=== PATIENT | male | born 1930 | race Caucasian/White ===

== ENCOUNTER 2019-04-22 14:45 | Inpatient (IN) | payer MEDICARE ==
[2019-04-22] MEDS ORDERED: SODIUM CHLORIDE 0.9% 1,000 ML IV STA (14:54)
--- NOTE | 2019-04-22 15:10 | ED ---
General Adult HPI - General Chief complaint: Altered Mental Status Stated complaint: Altered Mental Status Time Seen by Provider: 04/22/19 14:48 Source: patient, EMS, RN notes reviewed Mode of arrival: EMS Limitations: altered mental status - History of Present Illness Initial comments: Patient is a pleasant 88-year-old male presenting to the emergency Department with reported change in mental status. Patient had an episode today and yesterday. Patient states episode was fairly mild and he doesn't really know much about it. Patient states his family member was concerned about him and recommended she come to the emergency department. Patient symptom-free at this time and has no complaints. - Related Data Home Medications Medication Instructions Recorded Confirmed Pantoprazole Sodium [Protonix] 40 mg PO DAILY 04/22/19 04/22/19 Allergies Allergy/AdvReac Type Severity Reaction Status Date / Time No Known Allergies Allergy Verified 04/22/19 15:34 Review of Systems ROS Statement: Those systems with pertinent positive or pertinent negative responses have been documented in the HPI. ROS Other: All systems not noted in ROS Statement are negative. Constitutional: Denies: fever Eyes: Denies: eye pain ENT: Denies: ear pain Respiratory: Denies: dyspnea Cardiovascular: Denies: chest pain Endocrine: Denies: fatigue Gastrointestinal: Denies: abdominal pain Genitourinary: Denies: dysuria Musculoskeletal: Denies: back pain Skin: Denies: rash Neurological: Denies: weakness Past Medical History Additional Past Medical History / Comment(s): heart murmur History of Any Multi-Drug Resistant Organisms: None Reported Past Surgical History: Unable to Obtain Past Psychological History: No Psychological Hx Reported Smoking Status: Never smoker Past Alcohol Use History: None Reported Past Drug Use History: None Reported General Exam Limitations: altered mental status General appearance: alert, in no apparent distress Head exam: Present: normocephalic, other (Mild abrasion) Eye exam: Present: normal appearance, PERRL ENT exam: Present: normal oropharynx Neck exam: Present: normal inspection Respiratory exam: Present: normal lung sounds bilaterally Cardiovascular Exam: Present: regular rate, normal rhythm GI/Abdominal exam: Present: soft. Absent: tenderness Neurological exam: Present: alert, oriented X3, CN II-XII intact. Absent: motor sensory deficit Expanded Neurological exam: Present: protecting the airway Patient oriented to: Present: person, place, time Speech: Present: fluid speech Cranial nerves: EOM's Intact: Normal Motor strength exam: RUE: 5, LUE: 5, RLE: 5, LLE: 5 Eye Response: (4) open spontaneously Motor Response: (6) obeys commands Verbal Response: (5) oriented Psychiatric exam: Present: normal affect, normal mood Skin exam: Present: normal color, abrasion (Right forehead, mild and right arm and hand) Course Vital Signs 04/22/19 14:55 Temperature 98.9 F Pulse Rate 65 Respiratory 17 Rate Blood Pressure 122/63 O2 Sat by Pulse 98 Oximetry EKG Findings - EKG Comments: EKG Findings:: Sinus rhythm at 65. For screening AV block NE of 256. QRS 118. QT 48. QTC 507. Left axis. Left anterior fascicular block. Incomplete right bundle-branch block. No acute ST change. Medical Decision Making - Medical Decision Making Patient reevaluated and resting comfortably in bed. Still no complaints of chest discomfort. Family is now present and offers additional history. She states patient did appear near syncopal and somewhat confused when she went to evaluate him earlier today. - Lab Data Result diagrams: 04/22/19 14:55 04/22/19 14:55 Lab Results 04/22/19 04/22/19 04/22/19 Range/Units 14:55 14:55 14:55 WBC 10.0 (3.8-10.6) k/uL RBC 4.26 L (4.30-5.90) m/uL Hgb 13.9 (13.0-17.5) gm/dL Hct 41.4 (39.0-53.0) % MCV 97.1 (80.0-100.0) fL MCH 32.6 (25.0-35.0) pg MCHC 33.6 (31.0-37.0) g/dL RDW 13.3 (11.5-15.5) % Plt Count 209 (150-450) k/uL Neutrophils % 76 % Lymphocytes % 14 % Monocytes % 7 % Eosinophils % 0 % Basophils % 0 % Neutrophils # 7.6 (1.3-7.7) k/uL Lymphocytes # 1.4 (1.0-4.8) k/uL Monocytes # 0.7 (0-1.0) k/uL Eosinophils # 0.0 (0-0.7) k/uL Basophils # 0.0 (0-0.2) k/uL PT 9.9 (9.0-12.0) sec INR 0.9 (<1.2) APTT 21.8 L (22.0-30.0) sec Sodium 135 L (137-145) mmol/L Potassium 4.9 (3.5-5.1) mmol/L Chloride 104 (98-107) mmol/L Carbon Dioxide 21 L (22-30) mmol/L Anion Gap 10 mmol/L BUN 14 (9-20) mg/dL Creatinine 1.22 (0.66-1.25) mg/dL Est GFR (CKD-EPI)AfAm 62 (>60 ml/min/1.73 sqM) Est GFR (CKD-EPI)NonAf 53 (>60 ml/min/1.73 sqM) Glucose 92 (74-99) mg/dL Calcium 8.8 (8.4-10.2) mg/dL Total Bilirubin 1.2 (0.2-1.3) mg/dL AST 54 (17-59) U/L ALT 17 (4-49) U/L Alkaline Phosphatase 64 (38-126) U/L Troponin I (0.000-0.034) ng/mL Total Protein 6.8 (6.3-8.2) g/dL Albumin 3.7 (3.5-5.0) g/dL Urine Color Urine Appearance (Clear) Urine pH (5.0-8.0) Ur Specific [place] (1.001-1.035) Urine Protein (Negative) Urine Glucose (UA) (Negative) Urine Ketones (Negative) Urine Blood (Negative) Urine Nitrite (Negative) Urine Bilirubin (Negative) Urine Urobilinogen (<2.0) mg/dL Ur Leukocyte Esterase (Negative) Urine RBC (0-5) /hpf Urine WBC (0-5) /hpf Ur Squamous Epith Cells (0-4) /hpf Hyaline Casts (0-2) /lpf Urine Mucus (None) /hpf 04/22/19 04/22/19 Range/Units 14:55 14:55 WBC (3.8-10.6) k/uL RBC (4.30-5.90) m/uL Hgb (13.0-17.5) gm/dL Hct (39.0-53.0) % MCV (80.0-100.0) fL MCH (25.0-35.0) pg MCHC (31.0-37.0) g/dL RDW (11.5-15.5) % Plt Count (150-450) k/uL Neutrophils % % Lymphocytes % % Monocytes % % Eosinophils % % Basophils % % Neutrophils # (1.3-7.7) k/uL Lymphocytes # (1.0-4.8) k/uL Monocytes # (0-1.0) k/uL Eosinophils # (0-0.7) k/uL Basophils # (0-0.2) k/uL PT (9.0-12.0) sec INR (<1.2) APTT (22.0-30.0) sec Sodium (137-145) mmol/L Potassium (3.5-5.1) mmol/L Chloride (98-107) mmol/L Carbon Dioxide (22-30) mmol/L Anion Gap mmol/L BUN (9-20) mg/dL Creatinine (0.66-1.25) mg/dL Est GFR (CKD-EPI)AfAm (>60 ml/min/1.73 sqM) Est GFR (CKD-EPI)NonAf (>60 ml/min/1.73 sqM) Glucose (74-99) mg/dL Calcium (8.4-10.2) mg/dL Total Bilirubin (0.2-1.3) mg/dL AST (17-59) U/L ALT (4-49) U/L Alkaline Phosphatase (38-126) U/L Troponin I 0.404 H* (0.000-0.034) ng/mL Total Protein (6.3-8.2) g/dL Albumin (3.5-5.0) g/dL Urine Color Yellow Urine Appearance Cloudy (Clear) Urine pH 6.0 (5.0-8.0) Ur Specific [place] 1.024 (1.001-1.035) Urine Protein 1+ H (Negative) Urine Glucose (UA) Negative (Negative) Urine Ketones Negative (Negative) Urine Blood Negative (Negative) Urine Nitrite Negative (Negative) Urine Bilirubin Negative (Negative) Urine Urobilinogen 2.0 (<2.0) mg/dL Ur Leukocyte Esterase Negative (Negative) Urine RBC 1 (0-5) /hpf Urine WBC 2 (0-5) /hpf Ur Squamous Epith Cells <1 (0-4) /hpf Hyaline Casts 29 H (0-2) /lpf Urine Mucus Many H (None) /hpf - Radiology Data Radiology results: report reviewed (Computed tomography scan of the brain shows no acute hemorrhage. Atrophy. Old lacunar injuries. Arachnoid cyst.), image reviewed (Chest x-ray shows no acute process. Questionable aneurysm) Disposition Clinical Impression: Near syncope Disposition: ADMITTED IP TO THIS HOSP Is patient prescribed a controlled substance at d/c from ED?: No Referrals: Jesu Sams DO [Primary Care Provider] - 1-2 days Decision Time: 16:01
[2019-04-22 15:18] LABS: Basophils % (A) 0 %; Eosinophils % (A) 0 %; HCT 41.4 % (39.0-53.0); HGB 13.9 gm/dL (13.0-17.5); Lymphocytes # (A) 1.4 k/uL (1.0-4.8); Lymphocytes % (A) 14 %; MCH 32.6 pg (25.0-35.0); MCHC 33.6 g/dL (31.0-37.0); MCV 97.1 fL (80.0-100.0); Mean Platelet Volume 8.6; Monocytes # (A) 0.7 k/uL (0-1.0); Monocytes % (A) 7 %; Neutrophils # (A) 7.6 k/uL (1.3-7.7); Neutrophils % (A) 76 %; Platelet Count 209 k/uL (150-450); RBC 4.26 m/uL (4.30-5.90); RDW 13.3 % (11.5-15.5)
[2019-04-22 15:22] LABS: Appearance,Urine Cloudy (Clear); Bilirubin,Urine Negative (Negative); Blood,Urine Negative (Negative); Color,Urine Yellow; Glucose,Urine (UA) Negative (Negative); Hyaline Casts,Urine 29 /lpf (0-2); Ketones,Urine Negative (Negative); Leukocyte Esterase,Urine Negative (Negative); Mucus,Urine Many /hpf; Nitrite,Urine Negative (Negative); Protein,Urine 1+ (Negative); RBC,Urine 1 /hpf (0-5); Specific Gravity,Urine 1.024 (1.001-1.035); Squamous Epithelial Cell,Urine <1 /hpf (0-4); WBC,Urine 2 /hpf (0-5)
[2019-04-22 15:29] LABS: Albumin 3.7 g/dL (3.5-5.0); Calcium 8.8 mg/dL (8.4-10.2); Total Bilirubin 1.2 mg/dL (0.2-1.3); Total Protein 6.8 g/dL (6.3-8.2)
[2019-04-22 15:31] LABS: Potassium 4.9 mmol/L (3.5-5.1)
--- NOTE | 2019-04-22 15:31 | CT ---
EXAMINATION TYPE: CT brain wo con DATE OF EXAM: 04/22/2019 COMPARISON: None HISTORY: Patient poor historian. Altered mental status CT DLP: 1217.4 mGycm Automated exposure control for dose reduction was used. TECHNIQUE: CT scan of the head is performed without contrast. FINDINGS: There is no acute intracranial hemorrhage or midline shift identified. There is diffuse v entricular and sulcal prominence consistent with diffuse age-related cerebral atrophy. CSF attenuated prominent space in the right middle cranial fossa likely represents a 1.8 x 3.5 cm arachnoid cyst. T here there are few areas of low-attenuation in the periventricular white matter most commonly related to sequela of chronic small vessel ischemic change. Punctate old lacunar injuries of the bilateral b jose ganglia seen. The globes are intact. Circumferential moderate mucosal thickening of the sphenoid and ethmoid sinuses. Remaining visualized paranasal sinuses and mastoid air cells are well aerated. Atherosclerosis is seen of the intracranial vasculature. IMPRESSION: 1. No acute intracranial hemorrhage or midline shift. 2. Diffuse age-related cerebral atrophy and mild burden chronic small vessel ischemic change noted. Punctate old lacunar injuries of the bilateral basal ganglia. 3. 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 4. Mild paranasal sinus disease of the ethmoid and sphenoid sinuses.
--- NOTE | 2019-04-22 15:39 | XR ---
EXAMINATION TYPE: XR chest 2V DATE OF EXAM: 04/22/2019 COMPARISON: NONE HISTORY: Altered mental state TECHNIQUE: Frontal and lateral views of the chest are obtained. FINDINGS: There is no focal air space opacity, pleural effusion, or pneumothorax seen. The cardiac silhouette size is within normal limits. The aorta is dense and ectatic. Patient is rotated. The oss eous structures are intact with some questionable sclerosis involving the anterior left fifth rib, th ere is thoracic spondylosis. IMPRESSION: No acute cardiopulmonary process. Questionable sclerosis of the anterior left fifth rib, patient is rotated, there may be aortic aneurysm
[2019-04-22 15:44] LABS: INR 0.9 (<1.2); Prothrombin Time 9.9 sec (9.0-12.0)
[2019-04-22 15:52] LABS: Partial Thromboplastin Time 21.8 sec (22.0-30.0)
[2019-04-22] MEDS ORDERED: NITROGLYCERIN SL TABS 0.4 MG TAB SUBLINGUAL PRN (16:01)
[2019-04-22] MEDS ORDERED: ASPIRIN 81 MG PO STA (16:12)
[2019-04-22] MEDS ORDERED: ALPRAZolam 0.25 MG TAB PO PRN (19:40)
[2019-04-22] MEDS ORDERED: ACETAMINOPHEN TAB 500 MG TAB PO PRN (19:40)
--- NOTE | 2019-04-22 21:06 | HP ---
HISTORY AND PHYSICAL DATE OF SERVICE: 04/22/2019 CHIEF COMPLAINTS: Change in mental status and confusion. HISTORY OF PRESENT ILLNESS: This 88-year-old gentleman with a past medical history of multiple medical problems, including history of cardiac murmur, otherwise no other significant medical issues, being followed by Dr. Jesu Del Angel in the outpatient setting, was apparently living by himself, and the family found that the patient was confused. The patient probably also had a fall, with some bruises on the right side of the body, but the patient is apparently not able to remember such falls. The patient was taken to [facility] and admitted for further evaluation and treatment. The basic evaluation showed a normal CBC. Sodium was 135. Troponin was elevated at 0.404. The patient also had a CT scan of the brain, which I reviewed personally. It showed no acute abnormality. Diffuse age-related atrophy was noted with chronic small-vessel ischemia. Probably an arachnoid cyst was also noted. The patient was admitted for further evaluation and treatment. There is no history of any fever, rigor or chills. PAST MEDICAL HISTORY: History of cardiac murmur. MEDICATIONS: Protonix 40 mg daily. ALLERGIES: NONE. FAMILY HISTORY: No history of heart disease or strokes in the family. SOCIAL HISTORY: No history of smoking. No history of alcohol. REVIEW OF SYSTEMS: ENT: Diminished hearing. Diminished vision. CARDIOVASCULAR SYSTEM: No angina, palpitations. RESPIRATORY SYSTEM: As mentioned earlier. GI: No nausea, vomiting. : No dysuria or retention. NERVOUS SYSTEM: As mentioned earlier. ALLERGY/IMMUNOLOGY: No asthma, hayfever. MUSCULOSKELETAL: As mentioned earlier. HEMATOLOGY/ONCOLOGY: No history of anemia. ENDOCRINE: No history of diabetes, hypothyroidism. CONSTITUTIONAL: As mentioned earlier. DERMATOLOGY: Negative. RHEUMATOLOGY: Negative. PSYCHIATRY: As mentioned earlier. PHYSICAL EXAMINATION: Patient alert and oriented x3. Pulse is 63, blood pressure 129/64, respiration 18, temperature 98.1, pulse ox 97% on room air. HEENT: Conjunctivae normal. NECK: No jugular venous distention. CARDIOVASCULAR SYSTEM: S1, S2 muffled. RESPIRATORY SYSTEM: Breath sounds diminished at the bases. No rhonchi. No crackles. ABDOMEN: Soft, non-tender. No mass palpable. LEGS: No edema. No swelling. NERVOUS SYSTEM: Higher functions as mentioned earlier. Moves all 4 limbs. No focal motor or sensory deficit. LYMPHATICS: No lymph node palpable in neck, axillae or groin. SKIN: Multiple bruises on the right side, right elbow, right wrist and also right side of the forehead present. JOINTS: No active deforming arthropathy. LABS: WBC 10, hemoglobin 13.9 and sodium 135, potassium 4.9. Troponin 0.404. The EKG shows incomplete right bundle block and ST-T changes. ASSESSMENT: 1. Change in mental status, possibly acute transient ischemic attack. 2. Troponin 0.404; possible acute [id number]-elevation myocardial infarction. 3. Falls and generalized gait dysfunction. 4. Possible dementia. 5. Possible hyponatremia. 6. Multiple bruises. 7. History of gastroesophageal reflux disease. 8. FULL CODE. RECOMMENDATIONS AND DISCUSSION: In this 88-year-old gentleman who presented with multiple complex medical issues, at this time I recommend to continue current medications, symptomatic treatment. Otherwise, antiplatelet agents. I recommend cardiology and neurology consultations and complete neurovascular workup also, including 2D echo and carotid Doppler. Otherwise, PT/OT evaluation. The patient might be a candidate for rehab because of the history of frequent falls. Prognosis is guarded. Further recommendations to follow. Discussed with the patient. A copy of this dictation is being forwarded to Dr. Jesu Del Angel, who is the primary physician. MMODL / IJN: [id number] /
[2019-04-22] MEDS: HEPARIN SODIUM,PORCINE 5,000 UNIT/ML 1 ML VIAL SQ SCH (21:43)
[2019-04-22] MEDS: PANTOPRAZOLE 40 MG TABLET PO SCH (21:43)
[2019-04-23 03:28] LABS: Basophils % (A) 0 %; Eosinophils # (A) 0.2 k/uL (0-0.7); Eosinophils % (A) 2 %; HCT 39.8 % (39.0-53.0); HGB 13.2 gm/dL (13.0-17.5); Lymphocytes # (A) 2.2 k/uL (1.0-4.8); Lymphocytes % (A) 30 %; MCH 31.9 pg (25.0-35.0); MCHC 33.2 g/dL (31.0-37.0); MCV 96.2 fL (80.0-100.0); Mean Platelet Volume 8.4; Monocytes # (A) 0.6 k/uL (0-1.0); Monocytes % (A) 8 %; Neutrophils # (A) 4.2 k/uL (1.3-7.7); Neutrophils % (A) 57 %; Platelet Count 242 k/uL (150-450); RBC 4.14 m/uL (4.30-5.90); RDW 13.3 % (11.5-15.5); WBC 7.4 k/uL (3.8-10.6)
[2019-04-23 04:22] LABS: Calcium 9.1 mg/dL (8.4-10.2); Potassium 3.8 mmol/L (3.5-5.1)
[2019-04-23] MEDS: HEPARIN SODIUM,PORCINE 5,000 UNIT/ML 1 ML VIAL SQ SCH (09:52)
[2019-04-23] MEDS: ASPIRIN 325 MG TAB PO SCH (09:52)
[2019-04-23] MEDS: PANTOPRAZOLE 40 MG TABLET PO SCH (09:52)
--- NOTE | 2019-04-23 10:33 | P.CRDCN ---
History of Present Illness Consult date: 04/23/19 Requesting physician: Jordin Valenzuela Consult reason: sycope Chief complaint: Mental status changes History of present illness: This is a pleasant 88-year-old gentleman, apparently noted by family members to have some mental status changes and confusion which is why he was brought to the hospital. He also noticed some bruising on his body with a questionable fall. Patient has a history of being told in the past to have a heart murmur, history of GERD, no other medical history according to the patient, the information was obtained from the patient and the medical record. Cardiology consultation was requested for possible syncope. The patient states that he does remember falling, but he thinks this happened in the hospital setting. CAT scan of the brain was performed which did not reveal any acute intracranial hemorrhage or midline shift. Diffuse age-related cerebral atrophy and mild burden, chronic small vessel ischemic change noted. 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 Chest x-ray did not reveal any acute cardiopulmonary process. EKG shows a normal sinus rhythm with first-degree AV block, incomplete right bundle branch block pattern, and nonspecific ST-T wave changes. Blood pressure 114/50 with a heart rate in the 50s, 98 temperature, 97% on room air. White blood cell count 7.4, hemoglobin 13.2, platelet count 242. Sodium 136, potassium 3.8, BUN 16, creatinine 1.2. Troponin 0.40, 0.30, 0.24. At the time of my examination this morning, the patient is aware of where he is, not sure of why he was brought here, recalls a fall which she thinks occurred here in the hospital, does not recall any falls at home. Past Medical History Additional Past Medical History / Comment(s): heart murmur History of Any Multi-Drug Resistant Organisms: None Reported Past Surgical History: No Surgical Hx Reported, Unable to Obtain Past Anesthesia/Blood Transfusion Reactions: No Reported Reaction Past Psychological History: No Psychological Hx Reported Smoking Status: Never smoker Past Alcohol Use History: None Reported Past Drug Use History: None Reported Medications and Allergies Home Medications Medication Instructions Recorded Confirmed Type Pantoprazole Sodium [Protonix] 40 mg PO DAILY 04/22/19 04/22/19 History Allergies Allergy/AdvReac Type Severity Reaction Status Date / Time No Known Allergies Allergy Verified 04/22/19 15:34 Physical Exam Vitals: Vital Signs Temp Pulse Pulse Resp BP BP Pulse Ox 04/23/19 03:45 98.0 F 55 L 16 123/59 99 04/23/19 00:48 98.1 F 56 L 16 120/62 98 04/22/19 22:26 98.2 F 62 16 116/59 98 04/22/19 21:45 98.2 F 62 16 116/59 98 04/22/19 19:09 98.1 F 63 18 129/65 97 04/22/19 18:30 119/56 04/22/19 18:00 121/62 04/22/19 17:30 134/121 04/22/19 17:00 71 19 140/85 98 04/22/19 16:00 65 18 122/66 99 04/22/19 15:30 62 17 113/70 99 04/22/19 14:55 98.9 F 65 17 122/63 98 Intake and Output 04/22/19 04/23/19 04/23/19 22:59 06:59 14:59 Output Total 75 200 Balance -75 -200 Output: Urine 75 200 Other: Weight 74.435 kg 68.6 kg PHYSICAL EXAMINATION: GENERAL: 88-year-old gentleman in no acute distress at the time of my examination HEENT: Head is atraumatic, normocephalic. Pupils equal, round. Sclera anicteric. Conjunctiva are clear. Mucous membranes of the mouth are moist. Neck is supple. There is no elevated jugular venous pressure. No carotid bruit is heard. HEART EXAMINATION: Heart S1 and S2 systolic murmur. CHEST EXAMINATION: Lungs are clear to auscultation and precussion. No chest wall tenderness is noted on palpation or with deep breathing. ABDOMEN: Soft, nontender. Bowel sounds are heard. No organomegaly noted. EXTREMITIES: 2+ peripheral pulses with no evidence of peripheral edema and no calf tenderness noted. NEUROLOGIC patient is awake, alert and oriented 1 . . Results 04/24/19 02:57 04/24/19 02:57 Cardiac Enzymes 04/22/19 04/22/19 04/22/19 Range/Units 14:55 14:55 20:17 AST 54 (17-59) U/L Troponin I 0.404 H* 0.301 H* (0.000-0.034) ng/mL 04/23/19 Range/Units 03:16 AST (17-59) U/L Troponin I 0.241 H* (0.000-0.034) ng/mL Coagulation 04/22/19 Range/Units 14:55 PT 9.9 (9.0-12.0) sec APTT 21.8 L (22.0-30.0) sec Lipids 04/23/19 Range/Units 03:16 Triglycerides 76 (<150) mg/dL Cholesterol 166 (<200) mg/dL HDL Cholesterol 48 (40-60) mg/dL CBC 04/22/19 04/23/19 Range/Units 14:55 03:16 WBC 10.0 7.4 (3.8-10.6) k/uL RBC 4.26 L 4.14 L (4.30-5.90) m/uL Hgb 13.9 13.2 (13.0-17.5) gm/dL Hct 41.4 39.8 (39.0-53.0) % Plt Count 209 242 (150-450) k/uL Comprehensive Metabolic Panel 04/22/19 04/23/19 Range/Units 14:55 03:16 Sodium 135 L 136 L (137-145) mmol/L Potassium 4.9 3.8 (3.5-5.1) mmol/L Chloride 104 106 (98-107) mmol/L Carbon Dioxide 21 L 24 (22-30) mmol/L BUN 14 16 (9-20) mg/dL Creatinine 1.22 1.22 (0.66-1.25) mg/dL Glucose 92 91 (74-99) mg/dL Calcium 8.8 9.1 (8.4-10.2) mg/dL AST 54 (17-59) U/L ALT 17 (4-49) U/L Alkaline Phosphatase 64 (38-126) U/L Total Protein 6.8 (6.3-8.2) g/dL Albumin 3.7 (3.5-5.0) g/dL Current Medications Generic Name Dose Route Start Last Admin Trade Name Freq PRN Reason Stop Dose Admin Acetaminophen 500 mg 04/22/19 19:40 Tylenol Tab PO Q6HR PRN Fever and/ or Pain Alprazolam 0.25 mg 04/22/19 19:40 Xanax PO TID PRN Anxiety Aspirin 325 mg 04/23/19 09:00 04/23/19 09:52 Aspirin PO 325 mg DAILY TJ Administration Heparin Sodium (Porcine) 5,000 unit 04/22/19 21:00 04/23/19 09:52 Heparin SQ 5,000 unit Q12HR TJ Administration Multivitamins 1 each 04/23/19 12:00 Theragran PO DAILY@1200 TJ Nitroglycerin 0.4 mg 04/22/19 16:01 Nitrostat SUBLINGUAL Q5M PRN Chest Pain Pantoprazole Sodium 40 mg 04/22/19 19:45 04/23/19 09:52 Protonix PO 40 mg DAILY TJ Administration Sodium Chloride 10 ml 04/22/19 21:00 04/23/19 09:58 Saline Flush IV Not Given BID TJ Intake and Output 04/22/19 04/23/19 04/23/19 22:59 06:59 14:59 Output Total 75 200 Balance -75 -200 Output: Urine 75 200 Other: Weight 74.435 kg 68.6 kg 04/23/19 03:16 04/23/19 03:16 EKG Interpretations (text) EKG shows a sinus bradycardia with first-degree AV block and incomplete right bundle branch block pattern, nonspecific ST-T wave changes Assessment and Plan Plan: Assessment and plan #1 mental status changes with questionable fall, syncopal episode #2 GERD Plan We will obtain an echocardiogram with Doppler study. Obtain orthostatic heart rate and blood pressure every shift.Obtain D-dimer to R/o PE. Patient does have sinus bradycardia with first-degree AV block and right bundle branch block pattern, we will continue to monitor the patient for any significant bradycardia or tachyarrhythmias. Further recommendations to follow. DNP note has been reviewed, I agree with a documented findings and plan of care. Patient was seen and examined.
--- NOTE | 2019-04-23 10:38 | ECHOF ---
Referral Reason:Near syncope, MEASUREMENTS -------- HEIGHT: 165.1 cm WEIGHT: 68.5 kg BP: 123/57 RVIDd: 2.9 cm (< 3.3) IVSd: 1.2 cm (0.6 - 1.1) LVIDd: 3.7 cm (3.9 - 5.3) LVPWd: 1.4 cm (0.6 - 1.1) IVSs: 1.5 cm LVIDs: 2.7 cm LVPWs: 1.4 cm LA Diam: 4.2 cm (2.7 - 3.8) LAESV Index (A-L): 32.92 ml/m Ao Diam: 3.2 cm (2.0 - 3.7) AV Cusp: 1.8 cm (1.5 - 2.6) MV EXCURSION: 20.477 mm (> 18.000) MV EF SLOPE: 59 mm/s (70 - 150) EPSS: 0.3 cm MV E Bruce: 0.53 m/s MV DecT: 195 ms MV A Bruce: 0.87 m/s MV E/A Ratio: 0.61 AR PHT: 538 ms RAP: 5.00 mmHg RVSP: 29.32 mmHg FINDINGS -------- Sinus rhythm. This was a technically adequate study. The left ventricular size is normal. There is mild concentric left ventricular hypertrophy. Overa ll left ventricular systolic function is low-normal with, an EF between 50 - 55 %. The right ventricle is normal in size. The left atrium is mildly dilated. LA is midly dilated 29-33ml/m2. There is mild aortic valve sclerosis. Trace to mild aortic regurgitation. Mild mitral annular calcification present. Mild mitral regurgitation is present. Mild tricuspid regurgitation present. Right ventricular systolic pressure is normal at < 35 mmHg. There is no evidence of pulmonary hypertension. There is no pulmonic regurgitation present. The aortic root size is normal. There is no pericardial effusion. CONCLUSIONS -------- 1. Sinus rhythm. 2. This was a technically adequate study. 3. The left ventricular size is normal. 4. There is mild concentric left ventricular hypertrophy. 5. Overall left ventricular systolic function is low-normal with, an EF between 50 - 55 %. 6. The right ventricle is normal in size. 7. The left atrium is mildly dilated. 8. LA is midly dilated 29-33ml/m2. 9. There is mild aortic valve sclerosis. 10. Trace to mild aortic regurgitation. 11. Mild mitral annular calcification present. 12. Mild mitral regurgitation is present. 13. Mild tricuspid regurgitation present. 14. Right ventricular systolic pressure is normal at < 35 mmHg. 15. There is no evidence of pulmonary hypertension. 16. There is no pulmonic regurgitation present. 17. The aortic root size is normal. 18. There is no pericardial effusion. DIRECTOR GRAPHICS: Rashmi Ko RDCS
--- NOTE | 2019-04-23 11:58 | P.PN ---
Subjective This is a pleasant 88 years old male with no significant past medical history, presents with possible transient altered mental status and presyncope, patient himself said he cannot remember however he is alert awake and alert and oriented to time place and person as he knows he is in the [facility] hospital, he knows the date as 04/23/2019 and the president team, he knows why he is in the hospital. Currently patient denies any pain, no weakness or numbness, no dizziness or syncope. No nausea vomiting. However patient states that yesterday he fell in the hospital on his way going to the restroom, he denies headache, however he has someone in his left elbow area, elbow x-ray was ordered. 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 Echocardiogram showed ejection fraction of 50-55% with mild LVH, no significant valvular heart disease Objective - Vital Signs Vital signs: Vital Signs Temp 98.0 F 04/23/19 08:00 Pulse 54 L 04/23/19 08:00 Resp 14 04/23/19 08:00 BP 113/52 04/23/19 08:00 Pulse Ox 97 04/23/19 08:00 Intake & Output 04/22/19 04/23/19 04/23/19 18:59 06:59 18:59 Output Total 275 Balance -275 Weight 74.435 kg 68.6 kg Output: Urine 275 Other: # Voids 0 - Labs CBC & Chem 7: 04/23/19 03:16 04/23/19 03:16 Labs: Abnormal Lab Results - Last 24 Hours (Table) 04/22/19 04/22/19 04/22/19 Range/Units 14:55 14:55 14:55 RBC 4.26 L (4.30-5.90) m/uL APTT 21.8 L (22.0-30.0) sec D-Dimer (<0.60) mg/L FEU Sodium 135 L (137-145) mmol/L Carbon Dioxide 21 L (22-30) mmol/L Troponin I (0.000-0.034) ng/mL LDL Cholesterol, Calc (0-99) mg/dL Urine Protein (Negative) Hyaline Casts (0-2) /lpf Urine Mucus (None) /hpf 04/22/19 04/22/19 04/22/19 Range/Units 14:55 14:55 20:17 RBC (4.30-5.90) m/uL APTT (22.0-30.0) sec D-Dimer (<0.60) mg/L FEU Sodium (137-145) mmol/L Carbon Dioxide (22-30) mmol/L Troponin I 0.404 H* 0.301 H* (0.000-0.034) ng/mL LDL Cholesterol, Calc (0-99) mg/dL Urine Protein 1+ H (Negative) Hyaline Casts 29 H (0-2) /lpf Urine Mucus Many H (None) /hpf 04/23/19 04/23/19 04/23/19 Range/Units 03:16 03:16 03:16 RBC 4.14 L (4.30-5.90) m/uL APTT (22.0-30.0) sec D-Dimer (<0.60) mg/L FEU Sodium 136 L (137-145) mmol/L Carbon Dioxide (22-30) mmol/L Troponin I 0.241 H* (0.000-0.034) ng/mL LDL Cholesterol, Calc 103 H (0-99) mg/dL Urine Protein (Negative) Hyaline Casts (0-2) /lpf Urine Mucus (None) /hpf 04/23/19 Range/Units 11:01 RBC (4.30-5.90) m/uL APTT (22.0-30.0) sec D-Dimer 2.27 H (<0.60) mg/L FEU Sodium (137-145) mmol/L Carbon Dioxide (22-30) mmol/L Troponin I (0.000-0.034) ng/mL LDL Cholesterol, Calc (0-99) mg/dL Urine Protein (Negative) Hyaline Casts (0-2) /lpf Urine Mucus (None) /hpf Assessment and Plan Assessment: Presyncope, rule out cardiology and neurology causes sinus bradycardia and 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 We'll ask for physical therapy evalu ation Labs and medication were reviewed.. Continue same treatment. Continue with symptomatic treatment. Resume home medication. Monitor lytes and vitals. DVT and GI prophylaxis. Further recommendations of the clinical course of the patient DVT prophylaxis: Subcutaneous heparin GI Prophylaxis: Ppi PT/OT: Pending Prognosis is guarded
[2019-04-23] MEDS: MULTIVITAMINS, THERA 1 EACH TAB PO SCH (12:21)
--- NOTE | 2019-04-23 13:16 | XR ---
Left elbow HISTORY: Trauma and pain 3 views the left elbow Bone mineralization, joint spaces, alignment are maintained. There is overlying artifact. No evident elbow joint effusion. IMPRESSION: No fracture or dislocation is evident.
--- NOTE | 2019-04-23 14:06 | US ---
EXAMINATION TYPE: US venous doppler duplex LE DATE OF EXAM: 04/23/2019 1:56 PM COMPARISON: NONE CLINICAL HISTORY: Rule out DVT. Patient states no symptoms or h/o dvt SIDE PERFORMED: Bilateral TECHNIQUE: The lower extremity deep venous system is examined utilizing real time linear array sonog indira with graded compression, doppler sonography and color-flow sonography. VESSELS IMAGED: External Iliac Vein (EIV) Common Femoral Vein Deep Femoral Vein Greater Saphenous Vein * Femoral Vein Popliteal Vein Small Saphenous Vein * Proximal Calf Veins (* superficial vessels) Grayscale, color doppler, spectral doppler imaging performed of the deep veins of the lower extremiti es. Right Leg: Appears negative for DVT Left Leg: Internal echoes seen within noncompressible vein extending from proximal calf veins up thr ough CFV, minimal to no flow seen IMPRESSION: Positive deep venous thrombosis within the left lower extremity extending from the proxi mal calf veins through the common femoral vein. A [place] level critical message alert has been initiated for [facility] via the [employer] Results System on 04/23/2019 2:03 PM. This message alert has been sent to [facility] via the preferences provided by the clinician for the receipt of Radiology Critical Findings. Message ID [id number].
--- NOTE | 2019-04-23 14:24 | P.CNNES ---
History of Present Illness Consult date: 04/23/19 Requesting physician: Nguyễn Paulino Reason for Consult: Near syncope History of Present Illness: Patient is an 88-year-old male who states that he came to the hospital because his [id number] states that he "didn't look good". Patient says that he was feeling fine, does not know why he came to the hospital. As per EMS flow sheet when they arrive to the patient, it was mentioned that he was last normal on 04/19/2019. She had called him on the day is admission, yesterday at around 11:30 AM and she thought he was acting differently, and then when she came over to find him more unsteady, more confused than normal with some cognitive delay. Patient normally shuffles around but is worse today. Patient had abrasions to the head, hands with skin tear that are dried to both hands. Patient did not know how he got that. He thought that he may have injured them on the bed but was not sure. Patient's blood pressure was 121/66 in the sitting position, with pulse of 72. On standing up, it dropped down to 93/51 with pulse rate of 84. Respirations 16. Patient's blood sugar was over 131. Patient was brought to the hospital. There were no focal symptoms reported. Patient underwent Chest x-ray showed no acute cardiopulmonary process. Questionable sclerosis of the anterior left fifth rib, patient is rotated. There may be aortic aneurysm. EKG showed sinus rhythm with first-degree AV block. Computed tomography scan of head showed no acute intracranial hemorrhage or midline shift. Diffuse age-related cerebral atrophy and mild burden of chronic small vessel ischemic change noted. Punctate old lacunar injuries of the bilateral basal ganglia. 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 Mild paranasal sinus disease of the ethmoid and sphenoid sinuses. 2-D echo showed sinus rhythm. Mild concentric LVH. EF is 50-55%. Right ventricle is normal. Left atrium is mildly dilated. Mild aortic regurgitation. X-ray of the elbow showed no fracture or dislocation. Patient's troponins are mildly elevated, 0.404, UA is negative. Total cholesterol is 166, LDL 103, HDL 48 and triglycerides 76. Liver panel is normal electrolytes normal with sodium slightly low 136. Patient had a ultrasound of bilateral lower limbs today, which was positive for DVT within the left lower extremity extending from proximal calf pain through the common femoral vein. Patient has been seen by cardiology, for mildly elevated cardiac enzymes, first-degree AV block. Cardiology monitoring his rhythm. Review of Systems Denies headache problem with the vision, hoarseness or throat dysphagia. Denies any numbness tingling focal weakness. Denies chest pain, nausea vomiting diarrhea, abdominal pain. Past Medical History Additional Past Medical History / Comment(s): heart murmur History of Any Multi-Drug Resistant Organisms: None Reported Past Surgical History: No Surgical Hx Reported, Unable to Obtain Past Anesthesia/Blood Transfusion Reactions: No Reported Reaction Past Psychological History: No Psychological Hx Reported Smoking Status: Never smoker Past Alcohol Use History: None Reported Past Drug Use History: None Reported Medications and Allergies Home Medications Medication Instructions Recorded Confirmed Type Pantoprazole Sodium [Protonix] 40 mg PO DAILY 04/22/19 04/22/19 History Allergies Allergy/AdvReac Type Severity Reaction Status Date / Time No Known Allergies Allergy Verified 04/22/19 15:34 Physical Examination - Vital Signs Vital Signs: Vital Signs Temp Pulse Pulse Resp BP BP Pulse Ox 04/23/19 08:00 98.0 F 54 L 14 113/52 97 04/23/19 03:45 98.0 F 55 L 16 123/59 99 04/23/19 00:48 98.1 F 56 L 16 120/62 98 04/22/19 22:26 98.2 F 62 16 116/59 98 04/22/19 21:45 98.2 F 62 16 116/59 98 04/22/19 19:09 98.1 F 63 18 129/65 97 04/22/19 18:30 119/56 04/22/19 18:00 121/62 04/22/19 17:30 134/121 04/22/19 17:00 71 19 140/85 98 04/22/19 16:00 65 18 122/66 99 04/22/19 15:30 62 17 113/70 99 04/22/19 14:55 98.9 F 65 17 122/63 98 Intake and Output 04/22/19 04/23/19 04/23/19 22:59 06:59 14:59 Output Total 75 200 Balance -75 -200 Output: Urine 75 200 Other: # Voids 0 Weight 74.435 kg 68.6 kg On examination patient is an elderly male, in no distress. Patient is alert and awake. He knows it is April and the year is 2019, and that he is in [facility] in [place]. He knows his age and date of and the current president. Speech and language functions are normal. Attention and concentration fund of knowledge appears adequate. He does have slow mentation, and very hard of hearing. On cranial examination pupils are round and reactive to light, visual darden are full, except muscles are intact. Face is symmetric, tongue protrudes the midline. Palatal elevation and sensation normal. On muscle strength testing there is no pronator drift and the strength is normal in arms and legs distally and proximally reflexes are diminished. Patient has hammertoes and high arched feet. No ataxia for [id number] tone and bulk of muscles normal. No obvious bruit S1 and S2 audible. Peripheral pulses present. He has multiple bruises and skin tear from falls. He does not remember how they happened. Results - Laboratory Findings CBC and BMP: 04/23/19 03:16 04/23/19 03:16 Abnormal Lab Findings: Abnormal Labs 04/22/19 04/22/19 04/22/19 14:55 14:55 14:55 RBC 4.26 L APTT 21.8 L D-Dimer Sodium 135 L Carbon Dioxide 21 L Troponin I LDL Cholesterol, Calc Urine Protein Hyaline Casts Urine Mucus 04/22/19 04/22/19 04/22/19 14:55 14:55 20:17 RBC APTT D-Dimer Sodium Carbon Dioxide Troponin I 0.404 H* 0.301 H* LDL Cholesterol, Calc Urine Protein 1+ H Hyaline Casts 29 H Urine Mucus Many H 04/23/19 04/23/19 04/23/19 03:16 03:16 03:16 RBC 4.14 L APTT D-Dimer Sodium 136 L Carbon Dioxide Troponin I 0.241 H* LDL Cholesterol, Calc 103 H Urine Protein Hyaline Casts Urine Mucus 04/23/19 11:01 RBC APTT D-Dimer 2.27 H Sodium Carbon Dioxide Troponin I LDL Cholesterol, Calc Urine Protein Hyaline Casts Urine Mucus Assessment and Plan Assessment: * 88-year-old male admitted with unwitnessed falls, some mental status change. Exact cause is uncertain. Examination relatively nonfocal. Patient possibly has mild metabolic encephalopathy. His unwitnessed fall this of unclear etio logy. Patient has first degree AV block noted on EKG. Cardiac arrhythmia needs to be ruled out. Seizure also in the differential. Patient's orthostatics checked at the scene was positive, which could be contributing to the falls/syncope. * Acute deep venous thrombosis left lower extremity, which could be contributing to above. * Patient with hammertoes, high arched feet, possible peripheral neuropathy. Plan: * From neurological standpoint, we will check a carotid Doppler to rule out carotid stenosis, and an EEG to rule out epileptiform activity. * We will check B12, folate, TSH. * Patient has acute DVT. This will be addressed by internal medicine. * Cardiology also on board, to rule out any tachy or bradycardia arrhythmias. * Neurology will follow.
--- NOTE | 2019-04-23 15:18 | US ---
EXAMINATION TYPE: US carotid duplex BILAT DATE OF EXAM: 04/23/2019 COMPARISON: NONE CLINICAL HISTORY: Syncope versus seizure. Syncope EXAM MEASUREMENTS: RIGHT: Peak Systolic Velocity (PSV) cm/sec ----- Right CCA: 65.8 ----- Right ICA: 66.9 ----- Right ECA: 88.5 ICA/CCA ratio: 1.0 RIGHT: End Diastole cm/sec ----- Right CCA: 9.8 ----- Right ICA: 14.2 ----- Right ECA: 7.3 LEFT: Peak Systolic Velocity (PSV) cm/sec ----- Left CCA: 49.1 ----- Left ICA: 114.0 ----- Left ECA: 78.7 ICA/CCA ratio: 2.3 LEFT: End Diastole cm/sec ----- Left CCA: 8.6 ----- Left ICA: 23.9 ----- Left ECA: 3.6 VERTEBRALS (direction of flow): Right Vertebral: Antegrade Left Vertebral: Antegrade Rhythm: Normal Grayscale images show moderate eccentric plaque bilaterally greatest at the left carotid bulb. Veloci ty measurements left internal carotid artery within normal limits. Abnormal ICA over CCA ratio. IMPRESSION: Moderate left-sided plaque with stenosis approaching but under 50% felt Present. Criteria for Assigning % of Stenosis / Diameter reduction (Estimation based on the indirect measurements of the internal carotid artery velocities (ICA PSV). 1. Normal (no stenosis)=ICA PSV < 125 cm/s: ratio < 2.0: ICA EDV<40 cm/s. 2. Less than 50% stenosis=ICA PSV < 125 cm/s: ratio < 2.0: ICA EDV<40 cm/s. 3. 50 to 69% stenosis=ICA PSV of 125 to 230 cm/s: ration 2.0 ? 4.0: ICA EDV 40-100 cm/s. 4. Greater than 70% stenosis to near occlusion= ICA PSV > 230 cm/s: ratio > 4.0: ICA EDV > 100 cm/s. 5. Near occlusion= ICA PSV velocities may be low or undetectable: variable ratio and ICA EDV. 6. Total occlusion=unable to detect flow.
--- NOTE | 2019-04-23 15:34 | CT ---
EXAMINATION TYPE: CT angio chest DATE OF EXAM: 04/23/2019 COMPARISON: Chest x-ray from yesterday. HISTORY: elevated d-dimer CT DLP: 284.2 mGycm. Automated Exposure Control for Dose Reduction was Utilized. CONTRAST: CTA scan of the thorax is performed with IV Contrast, patient injected with 100 mL of Isovue 370, pul monary embolism protocol. MIP Images are created on CT scanner and reviewed. FINDINGS: LUNGS: Exam shows suboptimal as patient unable to hold breath. Suboptimal evaluation for subcentimete r nodules. Background mild underlying emphysematous change change with scattered pulmonary fibrosis i n both lower lungs. No pleural effusion or pneumothorax bilaterally. Calcified nearly 1 cm nodular gr anuloma posterior left midlung axial image 65. Additional smaller calcified nodules are granulomas th roughout the left lung MEDIASTINUM: There is satisfactory enhancement of the pulmonary artery and its branches, there is sma ll filling defect left upper lobe branch with segmental extension coronal image 103 and axial image 4 6. Enlarged main pulmonary artery at 3.4 cm image 52, CT findings consistent with underlying pulmonar y artery hypertension. There are no greater than 1 cm hilar or mediastinal lymph nodes. No pericard ial effusion is seen. Mild cardiomegaly. No suspicious right ventricular dilatation. Reflux of contra st into hepatic veins and IVC consistent with degree of right heart failure. Coronary artery calcific ation is present which is noted marker for underlying coronary artery disease. OTHER: Calcifications throughout the spleen consistent with product of old granulomatous disease. Mod erate multilevel spurring throughout the thoracic spine. IMPRESSION: 1. Acute pulmonary embolism involving left upper lobar branch with segmental extension. No additional significant pulmonary embolism. No CT evidence for right ventricular heart strain. 2. Background mild underlying emphysematous and chronic parenchymal fibrotic changes without suspicio us acute pulmonary process.
[2019-04-23] MEDS ORDERED: HEPARIN SODIUM,PORCINE 10,000 UNIT/ML 1 ML VIAL IV ONE (16:14)
[2019-04-23] MEDS ORDERED: HEPARIN SOD,PORK IN 0.45% NACL 25,000 UNIT in 0.45% NACL 1 250ML.BAG IV SCH (16:15)
[2019-04-23 16:46] LABS: Basophils % (A) 0 %; Eosinophils # (A) 0.2 k/uL (0-0.7); Eosinophils % (A) 3 %; HCT 40.5 % (39.0-53.0); HGB 13.3 gm/dL (13.0-17.5); Lymphocytes # (A) 1.7 k/uL (1.0-4.8); Lymphocytes % (A) 23 %; MCH 32.2 pg (25.0-35.0); MCV 97.5 fL (80.0-100.0); Mean Platelet Volume 8.4; Monocytes # (A) 0.7 k/uL (0-1.0); Monocytes % (A) 10 %; Neutrophils # (A) 4.6 k/uL (1.3-7.7); Neutrophils % (A) 61 %; Platelet Count 208 k/uL (150-450); RBC 4.15 m/uL (4.30-5.90); RDW 13.2 % (11.5-15.5); WBC 7.5 k/uL (3.8-10.6)
[2019-04-23 18:47] LABS: Folate, Serum 12.8 ng/mL
--- NOTE | 2019-04-23 20:13 | NM ---
EXAMINATION TYPE: NM pul vent and perfuse DATE OF EXAM: 04/23/2019 COMPARISON: NONE HISTORY: TECHNIQUE: Utilizing inhalation of 34.5 mCi Tc 99m DTPA aerosol and intravenous injection of 4.7 mCi of Tc 99m MAA, ventilation and perfusion images are acquired post injection in multiple projections. FINDINGS: There is segmental sized ventilation/perfusion mismatch involving the basal segment left lower lobe o n the lateral aspect. There is also ventilation/perfusion mismatch involving the posterior segment le ft upper lobe. The apical posterior segment right upper lobe shows ventilation/perfusion mismatch. IMPRESSION: Multiple segmental sized ventilation/perfusion mismatches corresponding to a high probability of pulm onary embolism.
[2019-04-23] MEDS: CYANOCOBALAMIN 500 MCG TAB PO SCH (21:07)
[2019-04-23 21:11] LABS: Hemoglobin A1C 5.2 % (4.0-6.0)
[2019-04-24 03:19] LABS: Basophils % (A) 0 %; Eosinophils # (A) 0.4 k/uL (0-0.7); Eosinophils % (A) 5 %; HCT 41.3 % (39.0-53.0); HGB 13.8 gm/dL (13.0-17.5); Lymphocytes # (A) 2.4 k/uL (1.0-4.8); Lymphocytes % (A) 28 %; MCH 32.1 pg (25.0-35.0); MCHC 33.4 g/dL (31.0-37.0); Mean Platelet Volume 8.7; Monocytes # (A) 0.8 k/uL (0-1.0); Monocytes % (A) 9 %; Neutrophils # (A) 4.5 k/uL (1.3-7.7); Neutrophils % (A) 54 %; Platelet Count 243 k/uL (150-450); RDW 13.3 % (11.5-15.5); WBC 8.4 k/uL (3.8-10.6)
[2019-04-24 03:49] LABS: Calcium 9.1 mg/dL (8.4-10.2); Potassium 3.9 mmol/L (3.5-5.1)
[2019-04-24] MEDS: PANTOPRAZOLE 40 MG TABLET PO SCH (09:35)
[2019-04-24] MEDS: ASPIRIN 325 MG TAB PO SCH (09:35)
[2019-04-24] MEDS: CYANOCOBALAMIN 500 MCG TAB PO SCH (09:35)
[2019-04-24] MEDS ORDERED: APIXABAN 5 MG TAB PO SCH (10:15)
--- NOTE | 2019-04-24 11:28 | PN ---
PROGRESS NOTE Mr. Palomares is an 88-year-old gentleman who is admitted with fall. The patient had a mild elevation of troponin and further evaluation revealed that the patient does have evidence of pulmonary emboli. Venous duplex study does show evidence of DVT. He has remained stable. Patient has a some hematoma of the tongue, but he is not having any difficulty in swallowing. Blood pressure is 142/68 mmHg. First and second heart sounds are normal. Lungs are clinically clear to auscultation and percussion. Patient's heparin was discontinued during the night because of the hematoma. ENT evaluation is recommended. We will recommend to start the patient on Eliquis 10 mg b.i.d. for 1 week. MMODL / IJN: [id number] /
--- NOTE | 2019-04-24 11:57 | P.PN ---
Subjective This is a pleasant 88 years old male with no significant past medical history, presents with possible transient altered mental status and presyncope, patient himself said he cannot remember however he is alert awake and alert and oriented to time place and person as he knows he is in the [facility] hospital, he knows the date as 04/23/2019 and the president team, he knows why he is in the hospital. Currently patient denies any pain, no weakness or numbness, no dizziness or syncope. No nausea vomiting. However patient states that yesterday he fell in the hospital on his way going to the restroom, he denies headache, however he has someone in his left elbow area, elbow x-ray was ordered. 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 We'll Consult ENT Service for Evaluation of His Airway, Keep Patient Nothing by Mouth and Ask for Swallow Evaluation. Also consult and I discussed the case with hematology service for further recommendation. I discussed the plan with the patient including risk of worsening bleeding, intracranial hemorrhage, GI hemorrhage, worsening tongue hematoma, breathing difficulty and/or day, he verbalized understanding and acceptance to continue with anticoagulation Number syncope or presyncope, patient is not dyspneic, no leg pain, as per patient. Swelling has been stable since last night. Left elbow x-ray is negative for fracture, TSH is normal, B12 is borderline and the placement is started Review of systems CONSTITUTIONAL: No fever, no malaise, no fatigue. HEENT: No recent visual problems or hearing problems. Denied any sore throat. CARDIOVASCULAR: No orthopnea, PND, no palpitations, no syncope. PULMONARY: No shortness of breath, no cough, no hemoptysis. GASTROINTESTINAL: No diarrhea, no nausea, no vomiting, no abdominal pain. Normoactive bowel sounds. NEUROLOGICAL: No headaches, no weakness, no numbness. HEMATOLOGICAL: Denies any bleeding or petechiae. GENITOURINARY: Denies any burning micturition, frequency, or urgency. MUSCULOSKELETAL/RHEUMATOLOGICAL: Denies any joint pain, swelling, or any muscle pain. ENDOCRINE: Denies any polyuria or polydipsia. Active Medications Generic Name Dose Route Start Last Admin Trade Name Freq PRN Reason Stop Dose Admin Acetaminophen 500 mg 04/22/19 19:40 Tylenol Tab PO Q6HR PRN Fever and/ or Pain Alprazolam 0.25 mg 04/22/19 19:40 Xanax PO TID PRN Anxiety Apixaban 10 mg 04/24/19 10:15 Eliquis PO 04/30/19 10:02 BID TJ Cyanocobalamin 1,000 mcg 04/23/19 19:45 04/24/19 09:35 Vitamin B-12 PO Not Given DAILY TJ Multivitamins 1 each 04/23/19 12:00 04/23/19 12:21 Theragran PO 1 each DAILY@1200 TJ Administration Nitroglycerin 0.4 mg 04/22/19 16:01 Nitrostat SUBLINGUAL Q5M PRN Chest Pain Pantoprazole Sodium 40 mg 04/22/19 19:45 04/24/19 09:35 Protonix PO Not Given DAILY TJ Sodium Chloride 10 ml 04/22/19 21:00 04/24/19 09:37 Saline Flush IV 10 ml BID TJ Administration Objective - Vital Signs Vital signs: Vital Signs Temp 97.9 F 04/24/19 08:20 Pulse 75 04/24/19 08:20 Resp 18 04/24/19 08:20 BP 142/68 04/24/19 08:20 Pulse Ox 98 04/24/19 08:20 Intake & Output 04/23/19 04/24/19 04/24/19 18:59 06:59 18:59 Intake Total 480 101.905 Output Total 400 500 325 Balance 80 -398.095 -325 Weight 68.7 kg Intake: Intake, IV Titration 101.905 Amount Heparin Sod,Pork in 0.45% 101.905 NaCl 25,000 unit In 0.45 % NaCl 1 250ml.bag @ 18 UNITS/KG/HR 12.348 mls/hr IV .[id number] [facility] Rx#: [id number] Oral 480 Output: Urine 400 500 325 Other: Voiding Method Toilet # Voids 1 2 1 # Bowel Movements 1 - Exam GENERAL: The patient is alert and oriented x3, not in any acute distress. Well developed, well nourished. -HEENT: Pupils are round and equally reacting to light. EOMI. No scleral icterus. No conjunctival pallor. Normocephalic, atraumatic. No pharyngeal erythema. No thyromegaly. Tongue is mildly swollen with ecchymosis in the lower part and side suspicious for lung hematoma CARDIOVASCULAR: S1 and S2 present. No murmurs, rubs, or gallops. PULMONARY: Chest is clear to auscultation, no wheezing or crackles. ABDOMEN: Soft, nontender, nondistended, normoactive bowel sounds. No palpable organomegaly. MUSCULOSKELETAL: No joint swelling or deformity. EXTREMITIES: No cyanosis, clubbing, or pedal edema. NEUROLOGICAL: Gross neurological examination did not reveal any focal deficits. SKIN: No rashes. no petechiae. - Labs CBC & Chem 7: 04/24/19 02:57 04/24/19 02:57 Labs: Abnormal Lab Results - Last 24 Hours (Table) 04/23/19 04/23/19 04/24/19 Range/Units 16:26 23:24 02:57 RBC 4.15 L (4.30-5.90) m/uL APTT >200.0 H* (22.0-30.0) sec Sodium 135 L (137-145) mmol/L BUN 21 H (9-20) mg/dL Glucose 102 H (74-99) mg/dL 04/24/19 Range/Units 02:57 RBC (4.30-5.90) m/uL APTT 124.0 H* (22.0-30.0) sec Sodium (137-145) mmol/L BUN (9-20) mg/dL Glucose (74-99) mg/dL Assessment and Plan Assessment: Presyncope, rule mostly related to his pulmonary embolism/DVT Acute left pulmonary embolism, mostly secondary to his left DVT Tongue hematoma sinus bradycardia and 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 Neurology on the case Possible mechanical fall Left elbow trauma from falling Plan: This is a pleasant 88 years old male who presents with a presyncope and elevated troponin, patient found to have PE/DVT, patient is started on heparin drip however to stop last night, patient is started on Eliquis this morning by cardiology team, I called ENT and hematology consults for further evaluation and treatment. Patient is also followed by nephrology service border EEG, TSH normal and B12 is borderline was started on replacement We'll ask for physical therapy evaluation Labs and medication were reviewed.. Continue same treatment. Continue with symptomatic treatment. Resume home medication. Monitor lytes and vitals. DVT and GI prophylaxis. Further recommendations of the clinical course of the patient DVT prophylaxis: Eliquis GI Prophylaxis: Ppi PT/OT: Pending Prognosis is guarded
[2019-04-24] MEDS: MULTIVITAMINS, THERA 1 EACH TAB PO SCH (12:01)
--- NOTE | 2019-04-24 15:05 | P.PN ---
Subjective Progress Note Date: 04/24/19 Principal diagnosis: Patient offers no new complaints. Patient apparently was started on heparin. Patient developed hemorrhage into the tongue. Heparin was discontinued, started on Eliquis 10 mg twice a day. Patient having difficulty speaking due to hemorrhage into the tongue with tongue swelling. No new focal symptoms. Objective - Vital Signs Vital signs: Vital Signs Temp 97.9 F 04/24/19 08:20 Pulse 83 04/24/19 12:00 Resp 18 04/24/19 12:00 BP 162/76 04/24/19 12:00 Pulse Ox 98 04/24/19 12:00 Intake & Output 04/23/19 04/24/19 04/24/19 18:59 06:59 18:59 Intake Total 480 101.905 240 Output Total 400 500 625 Balance 80 -398.095 -385 Weight 68.7 kg Intake: Intake, IV Titration 101.905 Amount Heparin Sod,Pork in 0.45% 101.905 NaCl 25,000 unit In 0.45 % NaCl 1 250ml.bag @ 18 UNITS/KG/HR 12.348 mls/hr IV .[id number] [facility] Rx#: [id number] Oral 480 240 Output: Urine 400 500 625 Other: Voiding Method Toilet # Voids 1 2 1 # Bowel Movements 1 - Exam Patient is alert and awake, slow mentation, slightly encephalopathic. Patient has difficulty speaking due to swollen tongue. Patient can name, but has difficulty repeating. He is hard of hearing. Face is symmetric. Visual darden full. No pronator drift. The sensations are equal. Muscle strength normal. Gait deferred. - Labs CBC & Chem 7: 04/24/19 02:57 04/24/19 02:57 Labs: Abnormal Lab Results - Last 24 Hours (Table) 04/23/19 04/23/19 04/24/19 Range/Units 16:26 23:24 02:57 RBC 4.15 L (4.30-5.90) m/uL APTT >200.0 H* (22.0-30.0) sec Sodium 135 L (137-145) mmol/L BUN 21 H (9-20) mg/dL Glucose 102 H (74-99) mg/dL 04/24/19 Range/Units 02:57 RBC (4.30-5.90) m/uL APTT 124.0 H* (22.0-30.0) sec Sodium (137-145) mmol/L BUN (9-20) mg/dL Glucose (74-99) mg/dL Assessment and Plan Assessment: * 88-year-old male admitted with unwitnessed falls, some mental status change. Probable metabolic encephalopathy.. Patient has first degree AV block noted on EKG. Cardiac arrhythmia needs to be ruled out. Patient's orthostatics checked at the scene was positive, which could be contributing to the falls/syncope. * Acute deep venous thrombosis left lower extremity, with pulmonary embolism, which could be contributing to above. * Hemorrhage into the tongue, possible coagulopathy. * Patient with hammertoes, high arched feet, possible peripheral neuropathy. Plan: * Carotid Doppler showed moderate left-sided block with stenosis approaching but under 50%. * EEG was normal awake and drowsy pattern. No epileptiform activity was seen. * B12 336, folate 12.8, TSH 2.83, hemoglobin A1c 5.2, all normal. * Patient on anticoagulation for acute DVT and PE. * Cardiology also on board, to rule out any tachy or bradycardia arrhythmias. * Neurology will follow.
--- NOTE | 2019-04-24 15:50 | EEG ---
ELECTROENCEPHALOGRAM REPORT DATE OF SERVICE: 04/24/2019. PREAMBLE: This is an 88-year-old male with possible syncopal spell versus seizure. This study is performed to look for any epileptiform activity. EEG FINDINGS: A routine 21-channel awake digital EEG recording was accomplished utilizing the 10/20 international system with bipolar and referential montages. The background consists of well developed, well regulated, moderate voltage activity in 8 Hz alpha. Background is posterior-dominant and reactive to eye opening and closing. Photic driving response was not seen. Mild drowsiness was seen, but deeper stages of sleep were not seen. No focal or generalized epileptiform activity was seen. EKG channel lead revealed no obvious arrhythmia. IMPRESSION: This is a normal awake and drowsy EEG. No focal lateralized or epileptiform activity was seen. MMODL / IJN: [id number] /
[2019-04-24] MEDS: SALT AND SODA MOUTHWASH 1,000 ML PO SCH ×8 (17:26→22:48)
--- NOTE | 2019-04-24 17:29 | P.GSCN ---
History of Present Illness Consult date: 04/24/19 Reason for Consult: Swollen tongue Requesting physician: Rogerio E Sheet History of present illness: This patient is an 88-year-old male who had been treated with anticoagulant therapy. Last night he developed swelling to his tongue. The swelling stopped after the heparin was stopped but then he was placed on a liquid is to now being switched to heparin. I've been asked to consult regarding his tongue swelling. The patient does have change in voice. He still able to swallow. Review of Systems - Constitutional Reports anorexia - EENT Ears, nose, mouth and throat: Denies bleeding gums - Cardiovascular Denies claudication - Respiratory Denies cough - Gastrointestinal Denies belching - Genitourinary Denies decreased libido - Musculoskeletal Denies fractures - Integumentary Denies color changes - Neurological Denies balance difficulties - Psychiatric Denies confusion - Endocrine Denies excessive sweating - Hematologic/Lymphatic Reports as per HPI, Reports easy bleeding - Allergic/Immunologic Reports allergic rhinitis Past Medical History Additional Past Medical History / Comment(s): heart murmur History of Any Multi-Drug Resistant Organisms: None Reported Past Surgical History: No Surgical Hx Reported, Unable to Obtain Past Anesthesia/Blood Transfusion Reactions: No Reported Reaction Past Psychological History: No Psychological Hx Reported Smoking Status: Never smoker Past Alcohol Use History: None Reported Past Drug Use History: None Reported Medications and Allergies Home Medications Medication Instructions Recorded Confirmed Type Pantoprazole Sodium [Protonix] 40 mg PO DAILY 04/22/19 04/22/19 History Allergies Allergy/AdvReac Type Severity Reaction Status Date / Time No Known Allergies Allergy Verified 04/22/19 15:34 Surgical - Exam Osteopathic Statement: *. No significant issues noted on an osteopathic structural exam other than those noted in the History and Physical/Consult. Vital Signs Temp Pulse Resp BP Pulse Ox 98.9 F 65 17 122/63 98 04/22/19 14:55 04/22/19 14:55 04/22/19 14:55 04/22/19 14:55 04/22/19 14:55 - General well developed, no pain - Eyes PERRL, normal ocular movement - ENT Tongue is swollen and bruised. He has limited movement. Digital palpation reveals a hematoma. normal nares, normal mucosa - Neck no bruits, trachea midline - Respiratory normal expansion - Integumentary no rash, no growths - Neurologic normal coordination, normal sensation - Musculoskeletal normal gait - Psychiatric oriented to time, oriented to person, oriented to place, no speech is normal Results - Labs 04/24/19 02:57 04/24/19 02:57 Abnormal Lab Results - Last 24 Hours (Table) 04/23/19 04/24/19 04/24/19 Range/Units 23:24 02:57 02:57 APTT >200.0 H* 124.0 H* (22.0-30.0) sec Sodium 135 L (137-145) mmol/L BUN 21 H (9-20) mg/dL Glucose 102 H (74-99) mg/dL Diabetes panel 04/23/19 04/24/19 Range/Units 03:16 02:57 Sodium 135 L (137-145) mmol/L Potassium 3.9 (3.5-5.1) mmol/L Chloride 104 (98-107) mmol/L Carbon Dioxide 26 (22-30) mmol/L BUN 21 H (9-20) mg/dL Creatinine 1.19 (0.66-1.25) mg/dL Glucose 102 H (74-99) mg/dL Hemoglobin A1c 5.2 (4.0-6.0) % Calcium 9.1 (8.4-10.2) mg/dL Calcium panel 04/24/19 Range/Units 02:57 Calcium 9.1 (8.4-10.2) mg/dL Pituitary panel 04/24/19 Range/Units 02:57 Sodium 135 L (137-145) mmol/L Potassium 3.9 (3.5-5.1) mmol/L Chloride 104 (98-107) mmol/L Carbon Dioxide 26 (22-30) mmol/L BUN 21 H (9-20) mg/dL Creatinine 1.19 (0.66-1.25) mg/dL Glucose 102 H (74-99) mg/dL Calcium 9.1 (8.4-10.2) mg/dL Adrenal panel 04/24/19 Range/Units 02:57 Sodium 135 L (137-145) mmol/L Potassium 3.9 (3.5-5.1) mmol/L Chloride 104 (98-107) mmol/L Carbon Dioxide 26 (22-30) mmol/L BUN 21 H (9-20) mg/dL Creatinine 1.19 (0.66-1.25) mg/dL Glucose 102 H (74-99) mg/dL Calcium 9.1 (8.4-10.2) mg/dL Assessment and Plan (1) Hematoma Current Visit: Yes Status: Acute Code(s): T14.8XXA - OTHER INJURY OF UNSPECIFIED BODY REGION, INITIAL ENCOUNTER SNOMED Code(s): 040976892 Plan: This patient has a tongue hematoma that is now stable. I'm recommending that he stay with his head elevated. He can chew on ice chips. Of course limiting his anticoagulant therapy would be advisable. Please call me if any changes should arise. Head of bed should be elevated to at least 45 [id number]. Time with Patient: Greater than 30
--- NOTE | 2019-04-24 17:48 | P.CONS ---
History of Present Illness - Reason for Consult Consult date: 04/24/19 New PE with tongue hematoma Requesting physician: Rogerio E Sheet - Chief Complaint dizzy, fall - History of Present Illness Mr Palomares is a very pleasant 88-year-old male patient with an unremarkable past medical history, very active, who has come to the hospital with complaints of dizziness, syncope. He was found on CT to have a left lower lobe PE, bilateral lower extremity Doppler showed a left lower extremity DVT. Patient also had a VQ scan which was positive for mismatch in the left upper lobe, left lower lobe and the right upper lobe. Patient was started on a heparin drip but, noted to have severe hemorrhage in his mouth. The tongue is very swollen the base of the mouth is also very bloody-looking. Hep drip was held. We've been asked to see the patient. Patient denied any recent injuries, prolonged travel, prolonged immobility, no personal history of blood clots, malignancy, he denies any acute changes in his health. He is very active, he bowls in the winter, gallstone in the summer. He didn't notice any pain or discomfort in the left lower extremity. He has complaints of shortness of breath with any activity. He denied any bleeding from the nose, no hematuria, no other unusual bruising to report. He denies biting his tongue or any trauma to the mouth. Review of Systems 14 point ROS is negative except as stated in HPI Past Medical History Additional Past Medical History / Comment(s): heart murmur History of Any Multi-Drug Resistant Organisms: None Reported Past Surgical History: No Surgical Hx Reported, Unable to Obtain Past Anesthesia/Blood Transfusion Reactions: No Reported Reaction Past Psychological History: No Psychological Hx Reported Smoking Status: Never smoker Past Alcohol Use History: None Reported Past Drug Use History: None Reported Medications and Allergies Home Medications Medication Instructions Recorded Confirmed Type Pantoprazole Sodium [Protonix] 40 mg PO DAILY 04/22/19 04/22/19 History Allergies Allergy/AdvReac Type Severity Reaction Status Date / Time No Known Allergies Allergy Verified 04/22/19 15:34 Physical Exam Vitals: Vital Signs Temp Pulse Resp BP Pulse Ox 04/24/19 08:20 97.9 F 75 18 142/68 98 04/24/19 04:00 97.9 F 71 20 173/78 94 L 04/24/19 00:00 98 F 66 16 128/64 98 03/18/20 20:00 97 F L 64 16 146/66 97 04/23/19 16:00 55 L 17 118/66 99 Intake and Output 04/23/19 04/24/19 04/24/19 22:59 06:59 14:59 Intake Total 240 101.905 Output Total 400 500 325 Balance -160 -398.095 -325 Intake: Intake, IV Titration 101.905 Amount Heparin Sod,Pork in 0.45% 101.905 NaCl 25,000 unit In 0.45 % NaCl 1 250ml.bag @ 18 UNITS/KG/HR 12.348 mls/hr IV .[id number] [facility] Rx#: [id number] Oral 240 Output: Urine 400 500 325 Other: Voiding Method Toilet # Voids 1 2 1 # Bowel Movements 1 Weight 68.7 kg - Constitutional General appearance: average body habitus, cooperative, no acute distress - EENT tongue is swollen with hematoma, base of tongue bloody, buccal area does not appear to be affected-hard to visualize with tongue swelling, no blood in nares Eyes: anicteric sclerae, EOMI ENT: hearing grossly normal - Neck Neck: no lymphadenopathy - Respiratory Respiratory: bilateral: CTA - Cardiovascular Rhythm: regular Heart sounds: normal: S1, S2 leg Peripheral Edema: bilateral: None - Gastrointestinal General gastrointestinal: no absent bowel sounds, no decreased bowel sounds, no distended, no hepatomegaly, no hyperactive bowel sounds, normal bowel sounds, no organomegaly, no rigid, no scaphoid, soft, no splenomegaly, no tenderness, no umbilical hernia, no ventral hernia - Integumentary skin damage on sun exposed areas - Neurologic Neurologic: CNII-XII intact - Musculoskeletal Musculoskeletal: generalized weakness, strength equal bilaterally - Psychiatric Psychiatric: A&O x's 3, appropriate affect, intact judgment & insight Results CBC & Chem 7: 04/24/19 02:57 04/24/19 02:57 Labs: Abnormal Lab Results - Last 24 Hours (Table) 04/23/19 04/23/19 04/24/19 Range/Units 16:26 23:24 02:57 RBC 4.15 L (4.30-5.90) m/uL APTT >200.0 H* (22.0-30.0) sec Sodium 135 L (137-145) mmol/L BUN 21 H (9-20) mg/dL Glucose 102 H (74-99) mg/dL 04/24/19 Range/Units 02:57 RBC (4.30-5.90) m/uL APTT 124.0 H* (22.0-30.0) sec Sodium (137-145) mmol/L BUN (9-20) mg/dL Glucose (74-99) mg/dL Comments: VQ report reviewed CT scan - chest: report reviewed CT Scan - head: report reviewed Venous US: report reviewed Assessment and Plan (1) Pulmonary embolism Current Visit: Yes Status: Acute Priority: High Code(s): I26.99 - OTHER PULMONARY EMBOLISM WITHOUT ACUTE COR PULMONALE SNOMED Code(s): 57009353 (2) DVT (deep venous thrombosis) Current Visit: Yes Status: Acute Priority: High Code(s): I82.409 - ACUTE EMBOLISM AND THOMBOS UNSP DEEP VN UNSP LOWER EXTREMITY SNOMED Code(s): 981948407 Plan: LLE DVT, LETICIA PE on CTA, VQ mismatch LETICIA, LLL, RUL Pt had severe glossal bleeding on heparin. This has been stopped, eliquis was already started. Heme recommends close monitoring of the mouth/tongue and Hgb. ENT consult. Salt and Soda rinses Q1 hour to assess blood loss. Ok to cont eliquis for now. Anticoagulation 6mo - 1year Unprovoked clotting. Pt states being very healthy and following with his PCP as recommended. He is not exactly sure of his last cancer screens. No evidence to suggest malignancy, no constitutional symptoms. Hypercoag work up outpatient. case was discussed with Internal Medicine
[2019-04-24] MEDS: APIXABAN 5 MG TAB PO SCH (22:16)
[2019-04-24] MEDS: amLODIPine 5 MG TAB PO SCH (22:18)
[2019-04-25] MEDS: SALT AND SODA MOUTHWASH 1,000 ML PO SCH ×9 (03:47→17:51)
[2019-04-25 06:44] LABS: Basophils % (A) 0 %; Eosinophils # (A) 0.4 k/uL (0-0.7); Eosinophils % (A) 5 %; HCT 42.5 % (39.0-53.0); HGB 14.1 gm/dL (13.0-17.5); Lymphocytes # (A) 1.5 k/uL (1.0-4.8); Lymphocytes % (A) 18 %; MCHC 33.2 g/dL (31.0-37.0); MCV 96.3 fL (80.0-100.0); Mean Platelet Volume 8.3; Monocytes # (A) 0.7 k/uL (0-1.0); Monocytes % (A) 8 %; Neutrophils # (A) 5.7 k/uL (1.3-7.7); Neutrophils % (A) 66 %; Platelet Count 245 k/uL (150-450); RBC 4.41 m/uL (4.30-5.90); RDW 13.2 % (11.5-15.5); WBC 8.7 k/uL (3.8-10.6)
[2019-04-25 06:56] LABS: Calcium 9.3 mg/dL (8.4-10.2); Potassium 4.3 mmol/L (3.5-5.1)
[2019-04-25] MEDS: APIXABAN 5 MG TAB PO SCH (10:11)
[2019-04-25] MEDS: amLODIPine 5 MG TAB PO SCH (10:11)
[2019-04-25] MEDS: PANTOPRAZOLE 40 MG TABLET PO SCH (10:11)
[2019-04-25] MEDS: MULTIVITAMINS, THERA 1 EACH TAB PO SCH (10:11)
[2019-04-25] MEDS: CYANOCOBALAMIN 500 MCG TAB PO SCH (10:11)
--- NOTE | 2019-04-25 10:52 | P.PN ---
Subjective Progress Note Date: 04/25/19 This is a pleasant 88-year-old gentleman, apparently noted by family members to have some mental status changes and confusion which is why he was brought to the hospital. He also noticed some bruising on his body with a questionable fall. Patient has a history of being told in the past to have a heart murmur, history of GERD, no other medical history according to the patient, the information was obtained from the patient and the medical record. Cardiology consultation was requested for possible syncope. The patient states that he does remember falling, but he thinks this happened in the hospital setting. CAT scan of the brain was performed which did not reveal any acute intracranial hemorrhage or midline shift. Diffuse age-related cerebral atrophy and mild burden, chronic small vessel ischemic change noted. 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 Chest x-ray did not reveal any acute cardiopu lmonary process. EKG shows a normal sinus rhythm with first-degree AV block, incomplete right bundle branch block pattern, and nonspecific ST-T wave changes. Blood pressure 114/50 with a heart rate in the 50s, 98 temperature, 97% on room air. White blood cell count 7.4, hemoglobin 13.2, platelet count 242. Sodium 136, potassium 3.8, BUN 16, creatinine 1.2. Troponin 0.40, 0.30, 0.24. At the time of my examination this morning, the patient is aware of where he is, not sure of why he was brought here, recalls a fall which she thinks occurred here in the hospital, does not recall any falls at home. 04/25/2019 Patient seen and examined this morning, he did rule in for pulmonary emboli and venous duplex study did show evidence of a DVT. Patient had developed a hematoma of the tongue, he's been encouraged to sit upright and continue to apply ice. Hemoglobin remained stable. Blood pressure 160/80 with a heart rate in the 70s. Objective - Vital Signs Vital signs: Vital Signs Temp 97.7 F 04/24/19 16:15 Pulse 72 04/25/19 04:00 Resp 16 04/25/19 04:00 BP 164/82 04/24/19 20:00 Pulse Ox 96 04/24/19 20:00 Intake & Output 04/24/19 04/25/19 04/25/19 18:59 06:59 18:59 Intake Total 480 240 Output Total 925 150 Balance -445 90 Weight 67 kg Intake: Oral 480 240 Output: Urine 925 150 Other: Voiding Method Toilet # Voids 1 1 - Exam PHYSICAL EXAMINATION: GENERAL: 88-year-old gentleman in no acute distress at the time of my examination HEENT: Head is atraumatic, normocephalic. Pupils equal, round. Sclera anicteric. Conjunctiva are clear. Mucous membranes of the mouth are moist. Hematoma noted to the time Neck is supple. There is no elevated jugular venous pressure. No carotid bruit is heard. HEART EXAMINATION: Heart S1 and S2 systolic murmur. CHEST EXAMINATION: Lungs are clear to auscultation and precussion. No chest wall tenderness is noted on palpation or with deep breathing. ABDOMEN: Soft, nontender. Bowel sounds are heard. No organomegaly noted. EXTREMITIES: 2+ peripheral pulses with no evidence of peripheral edema and no calf tenderness noted. NEUROLOGIC patient is awake, alert and oriented 1 . - Labs CBC & Chem 7: 04/25/19 06:20 04/25/19 06:20 Labs: Abnormal Lab Results - Last 24 Hours (Table) 04/25/19 Range/Units 06:20 Sodium 135 L (137-145) mmol/L Glucose 102 H (74-99) mg/dL Assessment and Plan Plan: Assessment and plan #1 mental status changes with questionable fall, syncopal episode #2 GERD #3 positive pulmonary embolism and DVT Plan We will continue the patient on the Eliquis per PE protocol, continue the rest of the patient's medications. DNP note has been reviewed, I agree with a documented findings and plan of care. Patient was seen and examined.
--- NOTE | 2019-04-25 13:20 | P.PN ---
Subjective Progress Note Date: 04/25/19 Principal diagnosis: Patient offers no new complaints. Patient currently on Eliquis 10 mg twice a day. Patient having difficulty speaking due to hemorrhage into the tongue with tongue swelling. No new focal symptoms. Objective - Vital Signs Vital signs: Vital Signs Temp 97.7 F 04/24/19 16:15 Pulse 72 04/25/19 04:00 Resp 16 04/25/19 04:00 BP 164/82 04/24/19 20:00 Pulse Ox 96 04/24/19 20:00 Intake & Output 04/24/19 04/25/19 04/25/19 18:59 06:59 18:59 Intake Total 480 240 Output Total 925 150 Balance -445 90 Weight 67 kg Intake: Oral 480 240 Output: Urine 925 150 Other: Voiding Method Toilet # Voids 1 1 1 - Exam Patient is alert and awake, better than yesterday. More better mentation, sl ightly encephalopathic. Her speech has improved. Patient able to repeat without difficulty. Still very hard of hearing. Face is symmetric. Visual darden full. No pronator drift. The sensations are equal. Muscle strength normal. Gait deferred. - Labs CBC & Chem 7: 04/25/19 06:20 04/25/19 06:20 Labs: Abnormal Lab Results - Last 24 Hours (Table) 04/25/19 Range/Units 06:20 Sodium 135 L (137-145) mmol/L Glucose 102 H (74-99) mg/dL Assessment and Plan Assessment: * 88-year-old male admitted with unwitnessed falls, some mental status change. Probable metabolic encephalopathy.. Patient has first degree AV block noted on EKG. Cardiac arrhythmia needs to be ruled out. Patient's orthostatics checked at the scene was positive, which could be contributing to the falls/syncope. * Acute deep venous thrombosis left lower extremity, with pulmonary embolism, wh ich could be contributing to above. * Hemorrhage into the tongue, possible coagulopathy. * Patient with hammertoes, high arched feet, possible peripheral neuropathy. Plan: * Carotid Doppler showed moderate left-sided block with stenosis approaching but under 50%. * EEG was normal awake and drowsy pattern. No epileptiform activity was seen. * B12 336, folate 12.8, TSH 2.83, hemoglobin A1c 5.2, all normal. Patient on B12 oral replacement. * Patient on Apixaban 10 mg twice a day for acute DVT and PE. * Cardiology also on board, to rule out any tachy or bradycardia arrhythmias. * Patient neurologically clear. Neurology will sign off.
--- NOTE | 2019-04-25 13:43 | P.PN ---
Subjective Progress Note Date: 04/25/19 Principal diagnosis: Hypercoaguable Hemoglobin is stable today, difficulty speaking with recent bleeding on tongue. Objective - Vital Signs Vital signs: Vital Signs Temp 97.7 F 04/24/19 16:15 Pulse 72 04/25/19 04:00 Resp 16 04/25/19 04:00 BP 164/82 04/24/19 20:00 Pulse Ox 96 04/24/19 20:00 Intake & Output 04/24/19 04/25/19 04/25/19 18:59 06:59 18:59 Intake Total 480 240 Output Total 925 150 Balance -445 90 Weight 67 kg Intake: Oral 480 240 Output: Urine 925 150 Other: Voiding Method Toilet # Voids 1 1 1 - Exam - Constitutional General appearance: average body habitus, cooperative, no acute distress - EENT tongue is swollen with hematoma, base of tongue bloody, buccal area does not appear to be affected-hard to visualize with tongue swelling, no blood in nares Eyes: anicteric sclerae, EOMI ENT: hearing grossly normal - Neck Neck: no lymphadenopathy - Respiratory Respiratory: bilateral: CTA - Cardiovascular Rhythm: regular Heart sounds: normal: S1, S2 leg Peripheral Edema: bilateral: None - Gastrointestinal General gastrointestinal: no absent bowel sounds, no decreased bowel sounds, no distended, no hepatomegaly, no hyperactive bowel sounds, normal bowel sounds, no organomegaly, no rigid, no scaphoid, soft, no splenomegaly, no tenderness, no umbilical hernia, no ventral hernia - Integumentary skin damage on sun exposed areas - Neurologic Neurologic: CNII-XII intact - Musculoskeletal Musculoskeletal: generalized weakness, strength equal bilaterally - Psychiatric Psychiatric: A&O x's 3, appropriate affect, intact judgment & insight Results - Labs CBC & Chem 7: 04/25/19 06:20 04/25/19 06:20 Labs: Abnormal Lab Results - Last 24 Hours (Table) 04/25/19 Range/Units 06:20 Sodium 135 L (137-145) mmol/L Glucose 102 H (74-99) mg/dL Assessment and Plan Plan: VQ report reviewed CT scan - chest: report reviewed CT Scan - head: report reviewed Venous US: report reviewed Assessment and Plan (1) Pulmonary embolism Current Visit: Yes Status: Acute Priority: High Code(s): I26.99 - OTHER PULMONARY EMBOLISM WITHOUT ACUTE COR PULMONALE SNOMED Code(s): 08449889 (2) DVT (deep venous thrombosis) Current Visit: Yes Status: Acute Priority: High Code(s): I82.409 - ACUTE EMBOLISM AND THOMBOS UNSP DEEP VN UNSP LOWER EXTREMITY SNOMED Code(s): 268562843 Plan: LLE DVT, LETICIA PE on CTA, VQ mismatch LETICIA, LLL, RUL Pt had severe glossal bleeding on heparin. This has been stopped, eliquis was already started. hemoglobin remains stable today. Heme recommends close monitoring of the mouth/tongue and Hgb. ENT consult. Salt and Soda rinses Q1 hour to assess blood loss. Ok to cont eliquis for now. Anticoagulation 6mo - 1year Unprovoked clotting. Pt states being very healthy and following with his PCP as recommended. He is not exactly sure of his last cancer screens. No evidence to suggest malignancy, no constitutional symptoms. Hypercoag work up outpatient. Will set up follow-up 6-8 weeks post discharge.
--- NOTE | 2019-04-25 14:15 | FL ---
EXAMINATION TYPE: FL barium swallow w video DATE OF EXAM: 04/25/2019 MODIFIED SWALLOW / DEGLUTITION STUDY CLINICAL HISTORY: Dysphagia. Rule out silent aspiration. Patient had throat swelling after heparin to xicity. TECHNIQUE: Deglutition study is performed utilizing thin liquid barium, honey and nectar thick liqui d barium, barium thick applesauce, and barium coated cracker. Total of 2.41 minutes of fluoroscopic t laisha utilized during procedure. 0 spot images are saved to PACS. COMPARISON: None. FINDINGS: The oral and pharyngeal phases show satisfactory initiation with all modalities tested. Sat isfactory mastication is seen with solid modalities tested. There is aspiration with thin liquid flako um which does not initiate a cough reflex. There is also aspiration to a lesser degree with nectar th ick liquid barium. Trace aspiration with Honey thick liquid barium. Moderate pharyngeal residue was a ppreciated with more viscous modalities. IMPRESSION: Silent aspiration with less viscous modalities is confirmed. Please refer to speech ther apist notes for further details if necessary.
--- NOTE | 2019-04-25 14:41 | P.GSCN ---
History of Present Illness Consult date: 04/25/19 Reason for Consult: DVT, pulmonary embolism evaluate for IVC filter History of present illness: The patient is a 88-year-old male with a past medical history of cardiac murmur otherwise no other significant medical issues. We have been consulted to see if the patient would be a candidate for an IVC filter versus anticoagulation. The patient was brought in yesterday by a family member who states the patient seemed somewhat confused, and had a possible recent fall. The patient is not aware of any fall, however does have some bruising on his right side of body. The patient does live home alone, however states family checks in on him periodically. The patient uses a cane. Upon admission a CT scan of the brain was performed which showed no acute abnormality, however showed diffuse age-related atrophy with chronic small vessel ischemia. A carotid ultrasound was performed which showed moderate left-sided plaque with st enosis under 50 percent. Patient had an elevated d-dimer 2.27 therefore a venous Doppler was performed and a CT angiogram of the chest. The venous Doppler showed evidence of a left lower extremity DVT extending from the proximal calf veins through the common femoral vein. CT angiogram revealed an acute pulmonary embolism involving the left upper lobar branch with segmental extension. No additional significant pulmonary embolism. No CT evidence of right ventricular heart strain. The patient was started on a heparin drip yesterday when he came in, however it was discontinued once the patient started complaining of swelling of his tongue with a significant hematoma. The patient was subsequently transitioned to Eliquis. The patient reports no difficulty in breathing, chest pain, no pain in his lower extremities, he states he has had improvement of the swelling and bruising of his tongue. Review of Systems Review of Systems completed and all pertinent positives and negatives as stated in the HPI. Past Medical History Additional Past Medical History / Comment(s): heart murmur History of Any Multi-Drug Resistant Organisms: None Reported Past Surgical History: No Surgical Hx Reported, Unable to Obtain Past Anesthesia/Blood Transfusion Reactions: No Reported Reaction Past Psychological History: No Psychological Hx Reported Smoking Status: Never smoker Past Alcohol Use History: None Reported Past Drug Use History: None Reported Medications and Allergies Home Medications Medication Instructions Recorded Confirmed Type Pantoprazole Sodium [Protonix] 40 mg PO DAILY 04/22/19 04/22/19 History Apixaban [Eliquis] 5 mg PO DIRECTED #60 tablet 04/24/19 Rx Allergies Allergy/AdvReac Type Severity Reaction Status Date / Time No Known Allergies Allergy Verified 04/22/19 15:34 Surgical - Exam Vital Signs Temp Pulse Resp BP Pulse Ox 98.9 F 65 17 122/63 98 04/22/19 14:55 04/22/19 14:55 04/22/19 14:55 04/22/19 14:55 04/22/19 14:55 General appearance: The patient is alert, oriented, in no acute distress. HET: Head is normocephalic and atraumatic. Tongue is midline, mild swelling with bruising. Neck: Supple without lymphadenopathy. Trachea midline. Heart: S1 S2. Regular rate and rhythm. Lungs: No crackles or wheezes are heard. Extremities: Normal skin color and turgor. No cyanosis, rash, ulceration, clubbing, or edema. Radial and pedal pulses are 2/4 bilaterally. Neurological: alert and orientated x 3, sensorimotor intact. Results - Labs 04/25/19 06:20 04/25/19 06:20 Abnormal Lab Results - Last 24 Hours (Table) 04/25/19 Range/Units 06:20 Sodium 135 L (137-145) mmol/L Glucose 102 H (74-99) mg/dL Diabetes panel 04/25/19 Range/Units 06:20 Sodium 135 L (137-145) mmol/L Potassium 4.3 (3.5-5.1) mmol/L Chloride 105 (98-107) mmol/L Carbon Dioxide 24 (22-30) mmol/L BUN 17 (9-20) mg/dL Creatinine 1.08 (0.66-1.25) mg/dL Glucose 102 H (74-99) mg/dL Calcium 9.3 (8.4-10.2) mg/dL Calcium panel 04/25/19 Range/Units 06:20 Calcium 9.3 (8.4-10.2) mg/dL Pituitary panel 04/25/19 Range/Units 06:20 Sodium 135 L (137-145) mmol/L Potassium 4.3 (3.5-5.1) mmol/L Chloride 105 (98-107) mmol/L Carbon Dioxide 24 (22-30) mmol/L BUN 17 (9-20) mg/dL Creatinine 1.08 (0.66-1.25) mg/dL Glucose 102 H (74-99) mg/dL Calcium 9.3 (8.4-10.2) mg/dL Adrenal panel 04/25/19 Range/Units 06:20 Sodium 135 L (137-145) mmol/L Potassium 4.3 (3.5-5.1) mmol/L Chloride 105 (98-107) mmol/L Carbon Dioxide 24 (22-30) mmol/L BUN 17 (9-20) mg/dL Creatinine 1.08 (0.66-1.25) mg/dL Glucose 102 H (74-99) mg/dL Calcium 9.3 (8.4-10.2) mg/dL Assessment and Plan Assessment: #1 pulmonary embolism on Eliquis #2 left lower extremity DVT #3 glossal hematoma Plan: Heparin drip has been discontinued after patient had a glossal bleed/hematoma. He currently is on Eliquis, and doing well without any further signs or symptoms of bleeding. Hematology has recommended anticoagulation for 6 months to one year for unprovoked clotting. At this time the patient appears to be an appropriate candidate to continue anticoagulation therapy. Dr. Martinez discussed with patient there are increased risks with anticoagulation and his age, including falls which could lead to a brain bleed therefore we will have physical therapy do an evaluation to make sure the patient is not at increased risk for falls. If the patient is found to be at increased risk for fall and injury, an IVC filter can be considered. Further recommendations to follow Thank you for this consultation and allowing us to take part plan of care this patient during his hospital stay. The above dictated assessment and findings were discussed with Dr. Martinez. The impression and plan of care have been directed as dictated.
--- NOTE | 2019-04-25 14:53 | P.DS ---
Providers Date of admission: 04/22/19 16:01 Attending physician: Jordin Valenzuela Consults: 04/22/19 16:01 Consult Physician Urgent Consulting Provider: Leonard Francis Consult Reason/Comments: near syncope Do you want consulting provider notified?: Yes Consult Physician Urgent Consulting Provider: James Tatum Consult Reason/Comments: Near-syncope with troponin of 0.44 Do you want consulting provider notified?: Yes 04/24/19 10:09 Consult Physician Urgent Consulting Provider: Nico Bui Consult Reason/Comments: PE, AND tongue hematoma Do you want consulting provider notified?: Yes 04/24/19 10:11 Consult Physician Urgent Consulting Provider: Stanford Marino Consult Reason/Comments: tongue hematoma Do you want consulting provider notified?: Yes 04/24/19 14:18 Consult Physician Routine Consulting Provider: Fidel Evans Consult Reason/Comments: possible IVC Filter Do you want consulting provider notified?: Yes Primary care physician: Jesu Sams Hospital Course: Diagnoses: Presyncope, rule mostly related to his pulmonary embolism/DVT Acute left pulmonary embolism, mostly secondary to his left DVT Tongue hematoma sinus bradycardia and 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 Neurology on the case Possible mechanical fall Left elbow trauma from falling Hospital course This is a pleasant 88 years old male with no significant past medical history, presents with possible transient altered mental status and presyncope, patient himself said he cannot remember however he is alert awake and alert and oriented to time place and person as he knows [facility], he knows the date as 04/23/2019 and the president team, he knows why he is in the hospital. Currently patient denies any pain, no weakness or numbness, no dizziness or syncope. No nausea vomiting. However patient states that yesterday he fell in the hospital on his way going to the restroom, he denies headache, however he has someone in his left elbow area, elbow x-ray was ordered. On admission his d-dimer was elevated and Doppler of the lower extent showing left DVT and CTA of the chest as well as PET scan showing left pulmonary embolism, patient was started on heparin drip and his hospital course was complicated by hematoma of the tongue so heparin drip was stopped and he was started on Eliquis, his breathing remained stable for more than 24 hours while he is on Eliquis 10 mg twice a day. Patient has been evaluated by ENT and hematology/oncology doctors and they cleared him for discharge However barium swallow showing silent aspiration with the sebaceous modality is confirmed. Speech and swallow evaluation is obtained and the recommended honey diet, please see notes for more details Neurologist evaluated patient for possible TIA versus seizure, there is some incision back to normal and EEG is negative. On the day of discharge patient presented quietly is fully awake and oriented, he denies chest pain or dyspnea. No leg pain, no change in urine or bowel habits Patient was cleared for discharge by all consultants including cardiology, hematology/oncology and ENT Problems and management plan were discussed with the patient and he verbalized understanding and acceptance Patient was found stable and can be discharged home however he needs follow-up as an outpatient. Patient was instructed to follow up with PCP within one week and patient agrees Gen: patient is a AAOx3, no distress CVS: S1-S2, RRR, no murmur Lungs: B/L CTA, no wheezing Abdomen: soft, no distention, no tenderness, positive bowel sounds Extremity: no leg edema or induration Time spent more than 35 minutes Plan - Discharge Summary Discharge Rx Participant: No New Discharge Prescriptions: New Apixaban [Eliquis] 5 mg PO DIRECTED #60 tablet No Action Pantoprazole Sodium [Protonix] 40 mg PO DAILY Discharge Medication List Pantoprazole Sodium [Protonix] 40 mg PO DAILY 04/22/19 [History] Apixaban [Eliquis] 5 mg PO DIRECTED #60 tablet 04/24/19 [Rx] Follow up Appointment(s)/Referral(s): Nico Bui MD [STAFF PHYSICIAN] - 6 Weeks Stanford Marino DO [Doctor of Osteopathic Medicine] - 1 Week Jesu Sams DO [Primary Care Provider] - 1-2 days Patient Instructions/Handouts: Pulmonary Embolism (DC), Deep Vein Thrombosis (DC), Safe Use of Anticoagulants (DC)
[2019-04-25 15:24] VITALS: RESP 18
[2019-04-25 15:26] VITALS: BP 128/70; PULSE 59; TEMP 97.6
== END 2019-04-25 18:05 | DRG 299 ==
LOC: EC 14:45 → 3SCARD 16:01
PROVIDERS: ADMIT Hospitalist; ATTEND Hospitalist
DX: I82.4Z2 Acute embolism and thrombosis of unspecified deep veins of left distal lower extremity (principal); I26.99 Other pulmonary embolism without acute cor pulmonale; G93.41 Metabolic encephalopathy; I82.412 Acute embolism and thrombosis of left femoral vein; I44.0 Atrioventricular block, first degree; I45.10 Unspecified right bundle-branch block; R00.1 Bradycardia, unspecified; M79.81 Nontraumatic hematoma of soft tissue; T45.515A Adverse effect of anticoagulants, initial encounter; G93.0 Cerebral cysts; K21.9 Gastro-esophageal reflux disease without esophagitis; M20.40 Other hammer toe(s) (acquired), unspecified foot; R55 Syncope and collapse; R26.9 Unspecified abnormalities of gait and mobility; H91.90 Unspecified hearing loss, unspecified ear; R01.1 Cardiac murmur, unspecified; Z79.899 Other long term (current) drug therapy; W19.XXXA Unspecified fall, initial encounter; Y92.239 Unspecified place in hospital as the place of occurrence of the external cause
CPT/HCPCS: 36415; 70450; 71046; 71275; 74230; 78582; 80048; 80053; 80061; 81001; 82607; 82746; 83036; 84443; 84484; 85025; 85379; 85610; 85730; 93005; 93306; 93880; 93970; 95816; 96360; 96361; 99285

== ENCOUNTER → 2019-10-24 | Outpatient (CLI) | payer MEDICARE ==
--- NOTE | 2019-10-24 15:51 | US ---
EXAMINATION TYPE: US venous doppler duplex LE LT DATE OF EXAM: 10/24/2019 2:11 PM COMPARISON: Prior ultrasound 04/23/2019 CLINICAL HISTORY: I26.99 PE. h/o dvt in left leg 04/2019 SIDE PERFORMED: Left TECHNIQUE: The lower extremity deep venous system is examined utilizing real time linear array sonog indira with graded compression, doppler sonography and color-flow sonography. VESSELS IMAGED: External Iliac Vein (EIV) Common Femoral Vein Deep Femoral Vein Greater Saphenous Vein * Femoral Vein Popliteal Vein Small Saphenous Vein * Proximal Calf Veins (* superficial vessels) Left Leg: Appearance of chronic DVT with thready flow and not fully compressible veins IMPRESSION: findings are felt likely to represent chronic change with recanalization as compared to p rior exam. There is intraluminal abnormal echo consistent with venous thrombosis.
--- NOTE | 2019-10-24 18:10 | CT ---
EXAMINATION TYPE: CT angio chest DATE OF EXAM: 10/24/2019 1:51 PM COMPARISON: CTA chest 04/23/2019 HISTORY: Pulmonary embolism CT DLP: 268.20 mGycm Automated exposure control for dose reduction was used. CONTRAST: CTA scan of the thorax is performed without and with IV Contrast, patient injected with 100 ml mL of Isovue 370, pulmonary embolism protocol. MIP images are created and reviewed. FINDINGS: LUNGS: Redemonstrated mild emphysematous change, with biapical pleural thickening and interstitial fi brotic coarsening at the lung bases. Left lower lobe calcified granuloma. The lungs are grossly theresa r, there is no concerning parenchymal mass or nodule identified. There is no pleural effusion or pne umothorax seen. The tracheobronchial tree is patent. MEDIASTINUM: There is satisfactory enhancement of the pulmonary artery and its branches, there is no CT evidence for pulmonary embolism. There are no greater than 1 cm hilar or mediastinal lymph nodes. Mild cardiomegaly. Calcified coronary artery disease. No pericardial effusion is seen. Main pulmonar y arterial trunk measures up to 3.1 cm. No thoracic aortic aneurysm. OTHER: Normal adrenal glands. Degenerative changes of the spine. IMPRESSION: NO EVIDENCE OF PULMONARY EMBOLISM.
== END | disposition home or self-care (01) ==
LOC: RADCTMAIN 12:31
PROVIDERS: ATTEND Internal Medicine Hematology & Oncology
DX: I26.99 Other pulmonary embolism without acute cor pulmonale (principal); I82.5Z2 Chronic embolism and thrombosis of unspecified deep veins of left distal lower extremity; Z88.8 Allergy status to other drugs, medicaments and biological substances
CPT/HCPCS: 82565; 84520; 93971; 71275; 36415; Q9967

== ENCOUNTER → 2020-05-14 | Outpatient (CLI) | payer MEDICARE ==
--- NOTE | 2020-05-16 14:02 | US ---
EXAMINATION TYPE: US venous doppler duplex LE LT DATE OF EXAM: 05/14/2020 12:52 PM COMPARISON: US 10/24/2019 CLINICAL HISTORY: I82.5Z9 DVT L lower ext. Followup US SIDE PERFORMED: Left TECHNIQUE: The lower extremity deep venous system is examined utilizing real time linear array sonog indira with graded compression, doppler sonography and color-flow sonography. VESSELS IMAGED: Common Femoral Vein Deep Femoral Vein Greater Saphenous Vein * Femoral Vein Popliteal Vein Small Saphenous Vein * Proximal Calf Veins (* superficial vessels) Left Leg: Positive for DVT in Left Femoral Vein with color flow patency seen in upper and distal Fem oral Vein. Non occluding DVT Left Popliteal Vein as color flow patency is noted but incomplete compre ssion there or in upper calf veins. IMPRESSION: 1. Left lower extremity ultrasound positive for deep venous thrombosis. Some flow is present through the echogenic thrombosed area compatible with chronic thrombosis.
== END | disposition home or self-care (01) ==
LOC: RADUSWWP 12:17
PROVIDERS: ATTEND Internal Medicine Hematology & Oncology
DX: I82.5Z2 Chronic embolism and thrombosis of unspecified deep veins of left distal lower extremity (principal)